=== PATIENT | male | born 1960 | race Asian ===

== ENCOUNTER 2018-04-22 23:55 | Emergency (ER) | payer OTHER ==
[~2018-04-22] VITALS: Ht 165.1 cm; Wt 66.2 kg
[2018-04-22 23:59] VITALS: BP 165/113
--- NOTE | 2018-04-23 00:02 | NUR ---
PT ON BED DELAY, TRIAGED, AWAITING MSE FROM DOCTOR.
--- NOTE | 2018-04-23 00:10 | NUR ---
Medication reconciliation done. Home meds in bag. Several months of full containers of all months noted. Spoke with daughter and she states he doesn't like pills and only takes them sometimes.
--- NOTE | 2018-04-23 00:10 | NUR ---
BIBA TO ER BED 6
[2018-04-23] MEDS ORDERED: PSE1TAB69 PO (00:11)
[2018-04-23] MEDS ORDERED: LORA10TA19 PO (00:11)
[2018-04-23] MEDS ORDERED: ATEN50TA8 PO (00:11)
[2018-04-23] MEDS ORDERED: MONT10TA35 PO (00:11)
[2018-04-23] MEDS ORDERED: SIMV20TA1 PO (00:11)
[2018-04-23] MEDS ORDERED: GABA300C PO (00:11)
[2018-04-23] MEDS ORDERED: ASPI-1440 PO (00:11)
--- NOTE | 2018-04-23 00:15 | NUR ---
57/M BIBA FROM HOME. PT'S DAUGHTER AND AT BEDSIDE FOR TRANSLATION PER PT REQUEST. PT REPORTS 10/29 INTERMITTENT MID ABD PAIN, RADIATING DIFFUSELY. PT DENIES FEVER, N/V. LBM TODAY. LUNG SOUNDS CLEAR BL. BS ACTIVE X4, ABD SOFT ROUND NONTENDER. AOX4, AMBULATORY, RR EVEN AND UNLABORED. HX ASTHMA, HTN Addendum: 04/23/18 at 0339 by MCKENNA ABD TENDER TO TOUCH
--- NOTE | 2018-04-23 02:07 | NUR ---
PT RESTING IN BED, RR EVEN AND UNLABORED, VSS, PT REPORTS 3/10 ABD PAIN. ALL NEEDS MET.
[2018-04-23] MEDS ORDERED: NACL 0.9% 1,000 ML IV ONE (02:21)
[2018-04-23] MEDS ORDERED: NACL 0.9% 1,000 ML IV SCH (02:21)
[2018-04-23] MEDS ORDERED: ONDANSETRON 4 MG/2 ML VIAL IVP ONE (02:25)
[2018-04-23 03:09] LABS: ALBUMIN 3.7 g/dL (3.4-5.0); CARBON DIOXIDE 33.1 mmol/L (21-32); CREATININE 0.9 mg/dL (0.7-1.3); POTASSIUM 4.1 mmol/L (3.5-5.1); TOTAL BILIRUBIN 0.3 mg/dL (0.0-1.0)
[2018-04-23 03:10] LABS: APPEARANCE,URINE CLEAR (CLEAR); BILIRUBIN,URINE NEGATIVE (NEGATIVE); BLOOD, URINE TRACE (NEGATIVE); COLOR,URINE YELLOW (YELLOW); PH,URINE 6.5 (5.0-9.0); UGLUCOSE NEGATIVE (NEGATIVE)
[2018-04-23 03:11] LABS: LEUKOCYTE ESTERASE ,URINE NEGATIVE (NEGATIVE); NITRITE, URINE NEGATIVE (NEGATIVE)
--- NOTE | 2018-04-23 03:15 | NUR ---
EKG PERFORMED AT BEDSIDE WITH FAMILY PRESENT. PT COVERED IN GOWN AND BLANKET DURING PROCEDURE.
[2018-04-23 03:16] LABS: BASOPHILS # (AUTO) 0.1 K/uL (0.00-0.22); BASOPHILS % (AUTO) 0.7 % (0.0-2.0); EOSINOPHILS # (AUTO) 0.1 K/uL (0-0.4); EOSINOPHILS % (AUTO) 1.1 % (0.0-4.0); HEMATOCRIT 45.9 % (36-52); HEMOGLOBIN 15.4 g/dL (12.0-18.0); MEAN CORPUSCULAR HEMOGLOBIN 30 pg (27-31); MEAN CORPUSCULAR HGB CONC 34 g/dL (33-37); MONOCYTES # (AUTO) 0.5 K/uL (0.8-1.0); NEUTROPHILS # (AUTO) 6.2 K/uL (1.8-7.7); NEUTROPHILS % (AUTO) 79.2 % (42.2-75.2); PLATELET COUNT (AUTO) 202 K/uL (140-450); RED BLOOD CELL COUNT(AUTO) 5.22 MIL/uL (4.20-6.10); RED CELL DISTRIBUTION WIDTH 12.8 % (11.6-13.7); WHITE BLOOD COUNT (AUTO) 7.8 K/uL (4.8-10.8)
--- NOTE | 2018-04-23 03:30 | NUR ---
PT TAKEN TO CT
[2018-04-23 03:53] LABS: RBC,URINE 0-5 (RARE) /HPF (0-5); WBC,URINE 0-5 (RARE) /HPF (0-5)
[2018-04-23] MEDS ORDERED: oxyCODONE/APAP 5/325 MG 1 TAB TAB PO ONE (04:20)
[2018-04-23] MEDS ORDERED: KETOROLAC 30 MG/ML VIAL IVP ONE (04:20)
[2018-04-23 04:57] VITALS: BP 157/104
--- NOTE | 2018-04-23 04:58 | NUR ---
Patient discharged with v/s stable. Written and verbal after care instructions given and explained. Patient alert, oriented and verbalized understanding of instructions. Ambulatory with steady gait. All questions addressed prior to discharge. ID band removed. Patient advised to follow up with PMD. Rx of IBUPROFEN, TAMSULOSIN, ZOFRAN ODT, NORCO 5-325 given. Patient educated on indication of medication including possible reaction and side effects. Opportunity to ask questions provided and answered.
== END 2018-04-23 04:57 | disposition home or self-care (01) ==
LOC: MED 23:55
DX: N23 Unspecified renal colic (principal); J45.909 Unspecified asthma, uncomplicated; I10 Essential (primary) hypertension; F17.210 Nicotine dependence, cigarettes, uncomplicated; Z79.899 Other long term (current) drug therapy; Z79.1 Long term (current) use of non-steroidal anti-inflammatories (NSAID)
CPT/HCPCS: 36415; 74177; 80053; 81001; 83690; 84484; 85025; 93005; 96374; 99285; J1885; Q9967; J2405

== ENCOUNTER 2021-11-11 05:25 | Emergency (ER) | payer OTHER ==
[~2021-11-11] VITALS: Ht 165.1 cm; Wt 65.0 kg
[~2021-11-11 05:25] MED LIST: ASPI-1440 PO; ATEN50TA8 PO; GABA300C PO; LORA10TA19 PO; MONT10TA35 PO; PSE1TAB69 PO; SIMV20TA1 PO
[2021-11-11 05:50] VITALS: BP 137/86
--- NOTE | 2021-11-11 05:54 | NUR ---
PT TAKEN TO BED 11.
--- NOTE | 2021-11-11 06:21 | NUR ---
61 Y.O M BIB DAUGHTER WITH SOB, CONGESTION AND COUGH X10 YRS. 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 STATES HE HAD MEDICATION CHANGES AND MEDS ARE NOT WORKING. LUNG SOUNDS ARE CLEAR. MEDICATION WAS FLUTICASONE PROPIONATE & SALMETEROL 100MG/50MCG AND CHANGED TO ALBUTEROL SULFATE 90MCG DUE TO "NOT MAKING HIM FELL BETTER". PRODUCTIVE COUGH WITH YELLOW SPUTUM. PT IS STATING AT 96% ON ROOM AIR. OTHER VITALS ARE STABLE AND DENIES PAIN AT THIS TIME. DENIES CHEST PAIN. PTS DAUGHTER AT BEDSIDE. HX:ASTHMA, HTN NKA
--- NOTE | 2021-11-11 06:30 | NUR ---
DR VALDIVIA AT BEDSIDE EXAMING PT
[2021-11-11] MEDS ORDERED: PRED20TA5 PO (06:39)
[2021-11-11] MEDS ORDERED: MUC600 PO (06:39)
[2021-11-11 06:47] VITALS: BP 137/86
--- NOTE | 2021-11-11 06:48 | NUR ---
Patient discharged with v/s stable. Written and verbal after care instructions given and explained. Patient alert, oriented and verbalized understanding of instructions. Ambulatory with steady gait. All questions addressed prior to discharge. ID band removed. Patient advised to follow up with PMD. Rx of MUCINEX AND DELTASONE given. Patient educated on indication of medication including possible reaction and side effects. Opportunity to ask questions provided and answered.
== END 2021-11-11 06:48 | disposition home or self-care (01) ==
LOC: MED 05:25
DX: R06.02 Shortness of breath (principal); R05.9 Cough, unspecified; J45.909 Unspecified asthma, uncomplicated; I10 Essential (primary) hypertension; Z79.899 Other long term (current) drug therapy
CPT/HCPCS: 99283